=== PATIENT | female | born 1965 | race Caucasian/White ===

== ENCOUNTER → 2021-06-11 | Emergency (ER) | payer OTHER ==
[~2021-06-11] VITALS: Ht 162.6 cm; Wt 103.0 kg
[~2021-06-11] MED LIST: ACETAMINOPHEN 325 MG TABLET PO ONE; ASPIRIN CHEWABLE 81 MG TABLET. PO ONE; NITROGLYCERIN SUBLINGUAL 0.4 MG BOTTLE OF 25. SL ONE; POTASSIUM CHLORIDE 20 MEQ TABLET.ER. PO ONE
[2021-06-11 11:40] VITALS: BP 141/76
--- NOTE | 2021-06-11 11:48 | PHYS DOC ---
Past History Past Medical History: Bipolar, Hypertension Past Surgical History: Hysterectomy Alcohol Use: None Drug Use: None Adult General Chief Complaint Chief Complaint: CHEST PAIN HPI HPI Patient is a 56-year-old female presenting via EMS for chest pain. Onset was approximately 1 hour prior to arrival when sitting at rest on the side of her bed. Pressing on anterior chest wall over sternum makes worse, nothing known makes better. Reports pain was sharp and focal, 10/10 severity initially but improved with administered aspirin and fentanyl to a 4/10 severity. Timing of symptoms has been constant since onset. She has never had any pain like this in the past. She has no prior cardiac history but has numerous risk factors such as obesity, high blood pressure and high cholesterol with a positive family history as her father had a heart attack less than 50 years old. She is well covered in outpatient setting with PCP, denies any formal provocative cardiac testing. Admits tobacco use, occasional alcohol use, no drug use Review of Systems Review of Systems Fourteen body systems of review of systems have been reviewed. See HPI for pertinent positives and negative responses, other marks all other systems are negative, non-pertinent or non-contributory Current Medications Current Medications Current Medications Medications (Trade) Dose Ordered Sig/Beatris Start Time Stop Time Status Last Admin Dose Admin Nitroglycerin (Nitrostat) 0.4 mg STK-MED ONCE 06/11/21 11:44 06/11/21 11:44 DC Allergies Allergies Allergies Coded Allergies Type Severity Reaction Last Updated Verified Sulfa (Sulfonamide Antibiotics) Allergy Intermediate Rash 10/10/16 Yes Physical Exam Physical Exam Constitutional: Well developed, well nourished, no acute distress, non-toxic appearance. HENT: Normocephalic, atraumatic, bilateral external ears normal, oropharynx moist, no oral exudates, nose normal. Eyes: PERRLA, EOMI, conjunctiva normal, no discharge. Neck: Normal range of motion, no tenderness, supple, no stridor. Cardiovascular: Heart rate regular, sinus rhythm, no murmurs rubs or gallops Lungs & Thorax: Bilateral breath sounds clear to auscultation Abdomen: Bowel sounds normal, soft, no tenderness, no masses, no pulsatile masses. Nonsurgical abdomen, no peritoneal signs Skin: Warm, dry, no erythema, no rash. Back: No tenderness, no CVA tenderness. Extremities: No tenderness, no cyanosis, no clubbing, ROM intact, no edema. Neurologic: Alert and oriented X 3, grossly normal motor & sensory function, no focal deficits noted. Psychologic: Affect normal, judgement normal, mood normal. Current Patient Data Vital Signs Vital Signs Date Time Temp Pulse Resp B/P (MAP) Pulse Ox O2 Delivery O2 Flow Rate FiO2 06/11/21 11:40 97.9 70 16 141/76 94 Vital Signs Date Time Temp Pulse Resp B/P (MAP) Pulse Ox O2 Delivery O2 Flow Rate FiO2 06/11/21 11:40 97.9 70 16 141/76 94 Lab Results Current Medications Medications (Trade) Dose Ordered Sig/Beatris Route PRN Reason Start Time Stop Time Status Last Admin Dose Admin Nitroglycerin (Nitrostat) 0.4 mg STK-MED ONCE SL 06/11/21 11:44 06/11/21 11:44 DC Aspirin (Aspirin Chewable) 324 mg 1X ONCE PO 06/11/21 11:45 06/11/21 11:53 DC Acetaminophen (Tylenol) 650 mg 1X ONCE PO 06/11/21 12:00 06/11/21 12:05 DC Potassium Chloride (Klor-Con) 40 meq 1X ONCE PO 06/11/21 13:30 06/11/21 13:31 DC 06/11/21 13:27 EKG EKG EKG ordered and interpreted by myself at 1145 hrs. as sinus rhythm at 69 bpm, unremarkable intervals, no axis deviation, nonspecific ST wave abnormalities noted in V3 otherwise no ischemic findings, no STEMI Radiology/Procedures Radiology/Procedures XR CHEST 1V INDICATION: CHEST PAIN . COMPARISON STUDY: None. FINDINGS: Lungs: Normal lung volume. No pulmonary mass or consolidation. The tracheobronchial tree and hilar structures are normal. Pleura: No pleural effusion or pneumothorax. Heart and Mediastinum: The cardiomediastinal silhouette is normal. The great vessels of the thorax are normal. Bones and Soft Tissues: The bones and soft tissues are within normal limits. IMPRESSION: No acute cardiopulmonary process. Electronically signed by: Jesus Alberto Ortiz MD (06/11/2021 12:21 PM) [id number] Heart Score C/O Chest Pain: Yes HEART Score for Chest Pain: HEART Score for Chest Pain Response (Comments) Value History Slighlty/Non-Suspicious 0 ECG Normal 0 Age >45 - < 65 1 Risk Factors 1 or 2 Risk Factors 1 Troponin < Normal Limit 0 Total 2 Risk Factors: Risk Factors: DM, Current or recent (<one month) smoker, HTN, HLP, family history of CAD, obesity. Risk Scores: Risk Factors: DM, Current or recent (<one month) smoker, HTN, HLP, family history of CAD, obesity. Course & Med Decision Making Course & Med Decision Making ABCs unremarkable. I disclosed entirety of ER findings and discussed most likely diagnosis of reproducible chest wall pain. Other diagnoses were discussed with patient such as ACS, pneumonia, pulmonary embolism etc. but all deemed less likely causes of patient's presentation. I discussed potential for hospital admission for cardiac observation but patient deferred, as such continued supportive care practices using heating pad and NSAIDs and/or Tylenol for pain control with close PCP and potentially cardiology follow-up advised. Plan of care discussed at length with need for close outpatient follow-up to review today's ER visit stressed. Strict return precautions were also discussed at length with good understanding by patient. Patient voiced understanding and agreement with the plan. Patient knows to come back for repeat evaluation if con cerning signs or symptoms present prior to outpatient follow-up. Hemodynamically stable, ambulatory and well-appearing at time of disposition. Dragon Disclaimer Dragon Disclaimer This electronic medical record was generated, in whole or in part, using a voice recognition dictation system. Departure Departure: Impression: Primary Impression: Chest pain, unspecified Additional Impression: Hypokalemia Disposition: HOME / SELF CARE / HOMELESS Condition: STABLE Referrals: TAMIKO APONTE (PCP) Patient Instructions: Chest Pain (Nonspecific), Chest Wall Pain Additional Instructions: You were seen for chest pain. Your workup did not show any acute abnormalities today, but does not indicate that you do not have underlying cardiovascular disease. You do need to follow up with your primary doctor and potentially a sign board erector for further evaluation and treatment. Continue using warm heating pads and Tylenol as needed for the pain. You should return to the ED if you develop worsening chest pain, shortness of breath, fever, abnormal sweating, leg swelling, or any other new or concerning symptoms. Problem Qualifiers CECILIO ANDERSON DO Jun 11, 2021 11:47
--- NOTE | 2021-06-11 12:24 | RAD ---
XR CHEST 1V INDICATION: CHEST PAIN . COMPARISON STUDY: None. FINDINGS: Lungs: Normal lung volume. No pulmonary mass or consolidation. The tracheobronchial tree and hilar st ructures are normal. Pleura: No pleural effusion or pneumothorax. Heart and Mediastinum: The cardiomediastinal silhouette is normal. The great vessels of the thorax ar e normal. Bones and Soft Tissues: The bones and soft tissues are within normal limits. IMPRESSION: No acute cardiopulmonary process. Electronically signed by: Jesus Alberto Ortiz MD (06/11/2021 12:21 PM) [id number]
[2021-06-11 12:29] LABS: BASO # 0.1 x10^3/uL (0.0-0.2); BASO % 1 % (0-3); EOS # 0.3 x10^3/uL (0.0-0.7); EOS % 3 % (0-3); HEMATOCRIT 39.3 % (36.0-47.0); HEMOGLOBIN 13.1 g/dL (12.0-15.5); LYMPH # 2.6 x10^3/uL (1.0-4.8); LYMPH % 32 % (24-48); MEAN CORPUSCULAR HEMOGLOBIN 30 pg (25-35); MEAN CORPUSCULAR HGB CONC 33 g/dL (31-37); MEAN CORPUSCULAR VOLUME 89 fL (79-100); MONO # 0.9 x10^3/uL (0.0-1.1); MONO % 11 % (0-9); NEUT # 4.4 x10^3uL (1.8-7.7); NEUT % 53 % (31-73); PLATELET COUNT 209 x10^3/uL (140-400); RED BLOOD COUNT 4.41 x10^6/uL (3.50-5.40); RED CELL DISTRIBUTION WIDTH 14.2 % (11.5-14.5); WHITE BLOOD COUNT 8.2 x10^3/uL (4.0-11.0)
[2021-06-11 12:31] LABS: CALCIUM 8.5 mg/dL (8.5-10.1); CREATININE 0.9 mg/dL (0.6-1.0); GFR 64.3; POTASSIUM 3.2 mmol/L (3.5-5.1)
--- NOTE | 2021-06-11 13:37 | EKG ---
[address] [address] Test Date: 2021-06-11 Test Time: 11:37:57 Pat Name: KARLA MATTA Department: Room: Gender: F Continuous Improvement Facilitator: : 1965 Requested By: CECILIO ANDERSON Order Number: [id number] Reading MD: Measurements Intervals [place] Rate: 69 P: 36 NM: 194 QRS: 9 QRSD: 90 T: 35 QT: 430 QTc: 462 Interpretive Statements SINUS RHYTHM T ABNORMALITY IN ANTERIOR LEADS ABNORMAL ECG RI6.02 No previous ECG available for comparison
== END ==
LOC: ER 11:31
DX: R07.2 Precordial pain (principal); E87.6 Hypokalemia; F31.9 Bipolar disorder, unspecified; I10 Essential (primary) hypertension; E78.00 Pure hypercholesterolemia, unspecified; E66.9 Obesity, unspecified; Z68.39 Body mass index [BMI] 39.0-39.9, adult; Z88.2 Allergy status to sulfonamides
CPT/HCPCS: 36415; 71045; 80048; 83880; 84484; 85025; 93005; 99285